=== PATIENT | female | born 1995 | race Caucasian/White ===

== ENCOUNTER 2021-06-16 10:51 | Emergency (ER) | payer BC, OTHER ==
[~2021-06-16 10:51] MED LIST: BACTRIM DS TAB1 EACH PO; PREDNISONE20 MG PO
[2021-06-16 12:01] LABS: HEMOGLOBIN 14.2 gm/dl (12.3-15.3); RED BLOOD COUNT 5.19 M/UL (4.00-5.10)
[2021-06-16 12:20] LABS: BUN/CREATININE RATIO 18 (0-10)
== END 2021-06-16 16:30 | disposition home or self-care (01) ==
LOC: ER1 10:51
PROVIDERS: Physician Assistant
DX: R10.11 Right upper quadrant pain (principal); R19.7 Diarrhea, unspecified; R11.0 Nausea
CPT/HCPCS: 80053; 81001; 83605; 83690; 84703; 85025; 87040; 96374; 99284; J2405; Q9967

== ENCOUNTER → 2022-08-11 | Outpatient (CLI) | payer OTHER | LOC: EXRD 10:23 | DX: R16.1 Splenomegaly, not elsewhere classified (principal); K76.0 Fatty (change of) liver, not elsewhere classified; K80.80 Other cholelithiasis without obstruction | CPT/HCPCS: 76700 ==